=== PATIENT | male | born 1960 | race Two or more races ===

== ENCOUNTER 2024-06-21 06:55 | Day surgery (SDC) | payer MEDICARE, MEDICAID, SELFPAY ==
[2024-06-20 10:02] VITALS: BMI 25.8
[2024-06-21] VITALS (10 sets, daily range): BP systolic 111–153; BP diastolic 73–89; PULSE 60–69; RESP 10–23; TEMP 36.3–36.7; O2SAT 91–99; BMI 27.0
[2024-06-21] MEDS: RINGERS LACTATED 1000 ML 1,000 ML 60 ML IV (08:35)
[2024-06-21] MEDS: BENZOCAINE 20% (Hurricaine) SPRAY 1 DOSE TOP (08:36)
[2024-06-21] MEDS: MIDAZOLAM INJ 1 MG/ML VIAL 2 ML (ASD USE ONLY) 2 MG IV (08:38)
[2024-06-21] MEDS: DiphenhydrAMINE INJ 50 MG/ML VIAL 25 MG IV (08:41)
[2024-06-21] MEDS: fentaNYL CIT INJ 50 mCg/ML AMP 2ML (ASD USE ONLY) IV (08:46)
== END 2024-06-21 09:35 | disposition home or self-care (01) ==
PROVIDERS: Referring Provider Specialist; Visit Provider Specialist
PROC: (CPT 43239; principal; 2024-06-21 08:30)
DX: K44.9 Diaphragmatic hernia without obstruction or gangrene (principal); K29.50 Unspecified chronic gastritis without bleeding; K31.A0 Gastric intestinal metaplasia, unspecified
CPT/HCPCS: 43239; 80053; 81001; 85025; 85610; 85730; A4649; J1200; J2250; J3010; J7120; A9270

== ENCOUNTER 2025-01-26 16:30 | Outpatient (RCR) | payer MEDICARE, MEDICAID, SELFPAY ==
--- NOTE | 2025-01-18 15:15 | PTNOTE_ITS ---
PT OP Initial Eval Patient Information Outpatient Physical Therapy Treatment Date: 01/18/25 Visit Reasons: Pain in RT shoulder Medical Diagnosis: M25.511 M19.011 Treatment Dx #1: R shoulder pain Treatment Dx #2: R shoulder weakness Start of Care: 01/18/25 Date of Onset: 1 yr ago Smoking Status Smoking Status: Former smoker Tobacco Use: Cigarette Years smoked: 20 Initial Assessment Subjective: Pt is 64 yr old bulgarian speaking male who c/o R shoulder pain that has worsened over 1 yr. The pain limits driving, lifting, and reaching tolerances until yesterday when he received a pain injection which helped reduce pain and numbness. He slipped and fell on concrete and lost consciousness in 2018 that has caused neck and lumbar spine pain. PLOF: pt had full use of R shoulder with reaching and ADL's not limited by pain PMH: pacemaker, abdominal hernia Imaging: with provider Pt goal: less pain in R shoulder Objective: R shoulder AROM: Strength: FF: full 4-/5 Abd: full 4-/5 ER: 85 deg Hand behind back: R L5 with anterior shoulder pain Drop arm: negative Full can: positive Empty can: positive Patel Shamir: negative Zepeda's: negative TTP: moderate of long head biceps tendon Assessment: Pt presentation consistent with RC and biceps tendinopathy. Pt may benefit from skilled therapy and has fair rehab potential to meet goals. Short Term and [employer] Goals 1. Ind with HEP 2. Pt will drive x45 mins with <=3/10 R shoulder pain 3. Decreased TTP of long head biceps tendon from mod to min 4. Pt will reach [place] x10 with <=3/10 R shoulder pain 5. Increased strength into FF and abduction to 4/5 Treatment Plan ? 1. Manual therapy ? 2. Therex ? 3. Modalities as indicated, moist heat, ice, estim Frequency and Duration: 2x a week for 12 sessions Certification Dates: 01/18/25 to 04/18/25 Procedure Charges OP PT Eval Mod Complex 30 minutes: Yes
--- NOTE | 2025-01-24 17:23 | PT.ODAYNRPT ---
PT Outpatient Daily Note OP Daily Note Outpatient Physical Therapy Treatment Date: 01/24/25 Visit Reasons: Pain in RT shoulder Subjective: Same as time of eval Objective: See F/S for therex MT: STM R biceps tendon x7' with Tona YUSUFP R shoulder x5' Assessment: Moderate TTP of R biceps tendon with manual therapy Plan: Continue per POC Length of Time (minutes) of Treatment: 30 Minutes Procedure Charges Therapeutic Exercise 30 minutes: Yes
--- NOTE | 2025-01-26 17:08 | PT.ODAYNRPT ---
PT Outpatient Daily Note OP Daily Note Outpatient Physical Therapy Treatment Date: 01/26/25 Visit Reasons: Pain in RT shoulder Subjective: Low pain in R shoulder today Objective: See F/S for therex MHP R shoulder x5' Assessment: Low tissue irritability with therex Plan: Continue per POC Length of Time (minutes) of Treatment: 30 Minutes Procedure Charges Therapeutic Exercise 30 minutes: Yes
== END 2025-02-05 23:59 | disposition home or self-care (01) ==
LOC: CPTX 16:30
PROVIDERS: PCP Internal Medicine; Referring Provider Internal Medicine; Visit Provider Internal Medicine
DX: M25.511 Pain in right shoulder (principal); R53.1 Weakness; M19.011 Primary osteoarthritis, right shoulder
CPT/HCPCS: 97110; 97162

== ENCOUNTER 2025-03-07 15:30 | Outpatient (RCR) | payer MEDICARE, MEDICAID, SELFPAY ==
--- NOTE | 2025-02-23 09:26 | PT.ODAYNRPT ---
PT Outpatient Daily Note OP Daily Note Outpatient Physical Therapy Treatment Date: 02/23/25 Visit Reasons: pain in RT shoulder Subjective: Less pain in R shoulder today after injection Objective: See F/S for therex MHP R shoulder x5' Assessment: Low tissue irritability with therex and full AROM into flexion Plan: Continue per POC Length of Time (minutes) of Treatment: 30 Minutes Procedure Charges Therapeutic Exercise 30 minutes: Yes
--- NOTE | 2025-02-28 17:57 | PT.ODAYNRPT ---
PT Outpatient Daily Note OP Daily Note Outpatient Physical Therapy Treatment Date: 02/28/25 Visit Reasons: pain in RT shoulder Subjective: Less pain in R shoulder today since the injection Objective: See F/S for therex Assessment: Low tissue irritability with AAROM therex and full AROM into flexion Plan: Continue per POC Length of Time (minutes) of Treatment: 30 Minutes Procedure Charges Therapeutic Exercise 30 minutes: Yes
--- NOTE | 2025-03-07 16:24 | PT.ODAYNRPT ---
PT Outpatient Daily Note OP Daily Note Outpatient Physical Therapy Treatment Date: 03/07/25 Visit Reasons: pain in RT shoulder Subjective: No new complaints. Objective: See F/S for therex Assessment: Progression of interventions completed with minimal pain. Plan: Continue per POC Length of Time (minutes) of Treatment: 30 Minutes Procedure Charges Therapeutic Exercise 30 minutes: Yes
== END 2025-03-08 23:59 | disposition home or self-care (01) ==
LOC: CPTX 15:30
PROVIDERS: PCP Internal Medicine; Referring Provider Internal Medicine; Visit Provider Internal Medicine
DX: M25.511 Pain in right shoulder (principal); M19.011 Primary osteoarthritis, right shoulder
CPT/HCPCS: 97110